=== PATIENT | female | born 2000 ===

== ENCOUNTER 2021-05-10 19:33 | Outpatient (CLI) | payer MEDICAID ==
[2021-05-10] MEDS ORDERED: ACETAMINOPHEN 500 MG TAB PO ONE (23:53)
[2021-05-10] MEDS ORDERED: LACTATED RINGERS 500 ML IV ONE (23:56)
[2021-05-11 01:19] VITALS: BP 107/58
[2021-05-11] MEDS ORDERED: LACTATED RINGERS 1,000 ML ONE (01:34)
--- NOTE | 2021-05-11 02:47 | Ultrasound Report ---
ULTRASOUND OBSTETRIC LIMITED ULTRASOUND BIOPHYSICAL PROFILE INDICATION / CLINICAL INFORMATION: WELL BEING. Clinical Gestational Age (GA) in weeks, days: 37, 0 TECHNIQUE: Transabdominal. COMPARISON: None available. FINDINGS: BREATHING MOVEMENT = 2 GROSS BODY MOVEMENT = 2 TONE = 2 QUALITATIVE AMNIOTIC FLUID VOLUME = 2 TOTAL BIOPHYSICAL SCORE = 8/8 HEART RATE (beats per minute): 143 PRESENTATION: Cephalic. ADDITIONAL FINDINGS: None. IMPRESSION: 1. Biophysical Score = 8/8 Signer Name: Maulik Garnett DO Signed: 05/11/2021 2:43 AM Workstation Name: [id number]
== END 2021-05-11 02:49 | disposition home or self-care (01) ==
LOC: TRG 19:33 → LD 19:36 → APU 20:00 → TRG 05-11 02:49
PROVIDERS: ATTEND Obstetrics & Gynecology
DX: O62.9 Abnormality of forces of labor, unspecified (principal); O46.93 Antepartum hemorrhage, unspecified, third trimester; O26.893 Other specified pregnancy related conditions, third trimester; R50.9 Fever, unspecified; J02.9 Acute pharyngitis, unspecified; Z3A.37 37 weeks gestation of pregnancy
CPT/HCPCS: 59025; 76819; 96360